=== PATIENT | female | born 1945 | race Caucasian/White ===

== ENCOUNTER 2016-09-25 15:16 | Emergency (ER) | payer MEDICARE ==
--- NOTE | ~2016-09-25 | ER ---
PATIENT'S NAME: [facility] AGE: 70 Y [address] ROOM: [place] [id number] LOCATION: ED ADMIT DATE: 09/25/2016 ER/Outpatient Report DISCHARGE DATE: 09/25/2016 FAMILY PHYSICIAN: , KIRIT ATTENDING PHYSICIAN: Prosper Crockett Time of Arrival: 1524 hours. Time of Evaluation: 1524 hours. CHIEF COMPLAINT: Low platelets. HISTORY OF PRESENT ILLNESS: The patient states that she is here visiting from [place]. She went to [facility] and had her blood work done today. Her platelet count was down to 8. She talked with her primary provider in [place]. The provider wanted her to get 2 units of platelets. We did talk with [facility], and they said that the patient has not been there for the last 2 years, and so she would need to be seen in order for them to treat her and had sent her to the ER for evaluation. The patient does have some bruising to her left elbow and right hand. Otherwise, states she has just been a little bit more fatigued in the last couple of days. ALLERGIES: NEOSPORIN. CURRENT MEDICATIONS: On her chart and reviewed by me. PAST MEDICAL HISTORY: Ovarian cancer, she is taking oral chemotherapy for it; hypertension, hyper- cholesterol, hypothyroidism. 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 SOCIAL HISTORY: She lives in [place]. States she quit smoking 7 years ago. States she quit drinking alcohol 26 years ago. Denies use of recreational drugs. REVIEW OF SYSTEMS: All negative other than those mentioned in the HPI. PHYSICAL EXAMINATION: PATIENT'S NAME: [facility] AGE: 70 Y [address] ROOM: [place] [id number] LOCATION: ED ADMIT DATE: 09/25/2016 ER/Outpatient Report DISCHARGE DATE: 09/25/2016 FAMILY PHYSICIAN: , KIRIT ATTENDING PHYSICIAN: Prosper Crockett VITAL SIGNS: She weighs 68.5 kg, blood pressure is 135/75, pulse is 72, respirations 16, temperature of 97.4 tympanic, O2 saturation is 94% on room air. GENERAL: She is awake, alert, and oriented x4. SKIN: [place], warm, and dry. RESPIRATIONS: Even and nonlabored. Lung sounds are clear throughout. HEART: Regular rate and rhythm. ABDOMEN: Soft and nondistended. Bowel sounds are present. EXTREMITIES: She moves all extremities strongly and equally. No peripheral edema is noted. LABORATORY DATA AND X-RAYS: Her central port was accessed. Lab work was drawn. Her CBC showed a white count of 6.2, hemoglobin of 10.1, and hematocrit of 29.1, her platelet count is 9. Her ANC is 3.4. Chem panel is within normal limits. She is A negative blood type. EMERGENCY DEPARTMENT COURSE: Two units of platelets were ordered. The patient was reviewed with Dr. Crockett. Platelets were given. The patient tolerated it well. IMPRESSION: Thrombocytopenia. PLAN: Home. Rest. Watch for signs of bleeding. Careful when brushing teeth. Return to the ER as needed. She verbalized understanding. MIKE RAMÍREZ APRN FOR DO GEORGE RAMSEY/gin /[id number] d: 09/26/16 0128 t: 10/07/16 1233, OUTPATIENT REPORT
[2016-09-25 15:59] LABS: HEMATOCRIT 29.1 % (33.0-46.0); HEMOGLOBIN 10.1 g/dL (10.0-15.0); MCH 34.4 pg (27.0-34.0); MCHC 34.7 gm/dL (32.0-36.5); MPV 12.9 fl (9.4-12.4); RBC 2.94 M/uL (3.50-5.50); RDW-CV 13.5 % (11.9-14.6); WBC 6.2 K/uL (4.0-11.0)
[2016-09-25 16:01] LABS: PLATELET COUNT 9 K/uL (150-450)
[2016-09-25 16:14] LABS: ALBUMIN 3.5 gm/dL (3.5-5.0); ANION GAP 10.7 (10.0-19.0); CALCIUM 8.7 mg/dL (8.5-10.5); CREATININE 1.4 mg/dL (0.5-1.1); POTASSIUM 3.7 mMol/L (3.7-5.1); TOTAL BILIRUBIN 0.6 mg/dL (0.0-1.5); TOTAL PROTEIN 7.1 g/dL (6.0-8.4)
[2016-09-25 16:43] LABS: ABSOLUTE NEUTROPHIL CT (ANC) 3.4 K/uL (1.8-7.8); BANDED NEUTROPHIL # 0.4 K/uL (0.0-0.1); BANDED NEUTROPHILS % 7 %; LYMPHOCYTE % 27 %; MONOCYTE # 0.4 K/uL (0.0-1.0); SEGMENTED NEUTROPHIL # 2.9 K/uL (1.8-7.8); SEGMENTED NEUTROPHIL % 47 %
== END 2016-09-25 18:32 | disposition disaster alternative care site (69) ==
LOC: GMED 15:16
PROVIDERS: Nurse Practitioner Family
PROC: 30233R1 Transfusion of Nonautologous Platelets into Peripheral Vein, Percutaneous Approach (ICD-10-PCS; principal; 2016-09-25)
DX: D69.6 Thrombocytopenia, unspecified (principal); C56.9 Malignant neoplasm of unspecified ovary; I10 Essential (primary) hypertension; E78.00 Pure hypercholesterolemia, unspecified; E03.9 Hypothyroidism, unspecified; Z90.49 Acquired absence of other specified parts of digestive tract; Z87.891 Personal history of nicotine dependence; Z90.710 Acquired absence of both cervix and uterus; Z88.8 Allergy status to other drugs, medicaments and biological substances
CPT/HCPCS: J1642; J7040; P9035